=== PATIENT | male | born 1995 | race Caucasian/White ===

== ENCOUNTER 2023-01-10 15:09 | Outpatient (REF) | payer OTHER, SELFPAY ==
--- NOTE | ~2023-01-10 | XR_ITS ---
EXAMINATION: XR CERVICAL SPINE CLINICAL INFORMATION: Cervicalgia. COMPARISON: None available. TECHNIQUE: 3 views of the cervical spine were obtained. FINDINGS: No abnormal prevertebral soft tissue swelling is seen. The bony texture and alignment appears satisfactory. No acute fracture is identified. There is some mild spurring seen at the C4-C5 and C5-C6 levels. No significant disc space narrowing is identified. No destructive bony lesions. There is some spurring also noted about the atlantoaxial joint. XR/XR cervical spine 2V IMPRESSION: Mild degenerative change of the cervical spine.
== END 2023-01-10 15:10 | disposition home or self-care (01) ==
LOC: HO.XRAY 15:09
PROVIDERS: PCP Nurse Practitioner Family; Visit Provider Nurse Practitioner Family
DX: M54.2 Cervicalgia (principal)
CPT/HCPCS: 72040

== ENCOUNTER 2025-03-21 09:22 | Outpatient (AMB) | payer OTHER, SELFPAY ==
--- NOTE | 2025-03-21 09:24 | A.OFFPC_ITS ---
Vital Signs 03/21/25 09:31 Height 5 ft 9 in Weight 201 lb 6 oz BMI 29.7 BP 116/74 Blood Pressure Location Rt brachial Position Sitting Pulse 85 Pulse Source Pulse Oximeter Temp 98.6 F Temp Source Temporal Artery Scan Pulse Oximetry (%) 98 Oxygen Delivery Method Room Air Intake Visit Reasons: EST CARE Intake Note: Jarod presents in the office today to establish care. Allergies kiwi Allergy (Severe, Verified 03/21/25 10:19) swelling and itching shellfish derived (SHELLFISH DERIVED) Allergy (Severe, Verified 03/21/25 10:19) ANAPHYLAXIS iodine (IODINE) Allergy (Intermediate, Verified 03/21/25 09:28) HIVES dog dander Allergy (Verified 03/21/25 09:28) Shortness of Breath Enviornmental Allergy (Intermediate, Uncoded 03/21/25 09:28) Sneezing Tobacco use date assessed: 03/21/25 Dental Screening Dental Screen Date: 03/21/25 Did you have a dental visit in the last 12 months?: Yes Did you have a dental problem in the last 6 months where you did not have access to dental care?: No Was dental information given to patient?: Patient has dentist HPI HPI Comments History of Present Illness Details 29-year-old male with a past medical his tory of environmental allergies, asthma and food allergies presents to establish care. It has been several years since he had a primary care provider. Asthma-triggered by illness sometimes and exposure to dogs. When his sister's dog is around he starts to sneeze. He was around the dog for 2 days in a row, and he could not stop coughing for a day. It kept him awake at night. His rescue inhaler was ineffective. No wheezing, shortness of breath or chest pain. Coughing was worse when he laughed. He gets no symptoms with exercise. He is a nonsmoker. No steroid courses or ER visits or hospitalizations for asthma. He gets mild seasonal allergy symptoms like watery eyes. He does not need to take medicine for this. He saw Dr. Mabry for evaluation of allergies in the past, and he started allergy shots, but he felt it was too much to go twice a week, and he discontinued immunotherapy. He is allergic to shellfish (crustaceans). He can eat mollusks including scallops, oysters and clams. Ingestion of crustaceans causes throat closing, itching and lip swelling. He can eat finned fish. Ingestion of argueta we causes for lip swelling and skin itching. He has an EpiPen, but he is not sure if this is up-to-date. Patient reports he was hospitalized in 2018 for swelling, shortness of breath and hives all over his body for 3 days. 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 He has a right ACL tear. He sees Orthopedics, and eventually he will need surgery, but he defers it for now. After swimming and diving into a pool last week his neck has been stiff. This has happened before. It does not radiate down his arms, and there was no numbness or tingling or weakness of the arms. He has been massaging his neck, and it is better. The pain is mild. ROS: Constitutional: No unexplained weight loss, fever, chills, fatigue or night sweats. Eyes: No vision changes, blurry vision, double vision, eye pain, eye redness, eye discharge. ENT: No hearing loss, sneezing, congestion, runny nose or sore throat. Respiratory: No current cough, wheezing, shortness of breath or sputum production. Cardiovascular: No chest pain Gastrointestinal: No anorexia, nausea, vomiting or diarrhea. No abdominal pain Neurologic: No headache, dizziness, syncope, unilateral weakness, ataxia, numbness or tingling in the extremities. Musculoskeletal: See HPI. Skin: No rash Physical exam: Constitutional: Alert, in no distress. Eyes: Pupils are equal, round and reactive to light. Extraocular muscles intact. Ear, Nose and Throat: Canals clear. TMs normal. Normal nasal mucosa. No nasal discharge. No oral lesions. Mild cobblestoning in the pharynx. Neck: Supple, Full range of motion. No lymphadenopathy Respiratory: Clear to auscultation. Cardiovascular: S1 S2 regular. No murmurs. Neurologic: No focal neurological deficits. Musculoskeletal: Full range of motion of the cervical spine. No midline spinal tenderness. The right paraspinal muscles are tender and tight. Psychiatric: Normal mood and affect [facility] Medical History (Updated 03/21/25 @ 10:25 by HALIMA Erazo) Multiple food allergies Mild intermittent asthma Anaphylaxis due to shellfish Allergy to dogs Screening for cardiovascular condition Asthma Cervical spine pain Surgical History H/O anterior cruciate ligament surgery Family History (Updated 01/28/23 @ 11:02 by Shraddha Butler) Father No problems noted. Mother No problems noted. Sister Fibromyalgia Heart problem Brother No problems noted. Maternal Grandmother Stomach cancer Social History Housing: Apartment Patient Tobacco Use Status: Never used Tobacco e-Cigarette/Vaping Use: Never Used Second Hand Smoke Exposure: Yes service: No Current occupational status: employed Current occupation: [employer] Current occupational exposures/hazards: No Cognitive needs: No Hearing needs: No Vision needs: No Questionnaire PHQ-9 Over the last 2 weeks, how often have you been bothered by any of the following problems? 1. Little interest or pleasure in doing things: not at all 2. Feeling down, depressed, or hopeless: not at all 3. Trouble falling or staying asleep, or sleeping too much: not at all 4. Feeling tired or having little energy: not at all 5. Poor appetite or overeating: not at all 6. Feeling bad about yourself - or that you are a failure or have let yourself or your family down: not at all 7. Trouble concentrating on things, such as reading the newspaper or watching television: not at all 8. Moving or speaking so slowly that other people could have noticed. Or the opposite - being so fidgety or restless that you have been moving around a lot more than usual: not at all 9. Thoughts that you would be better off or of hurting yourself in some way: not at all Total score: 0 Depression Screening Interpretation: Negative Depression Screening Done: Yes 06480 - PHQ-9 Billing: Yes Source: Developed by Drs. Jefferson Arias, Leigh Ann Nair, Javad Ortiz and colleagues, with an educational fany from [employer]. Thrive Questionnaire Date Thrive assessed: 03/21/25 I am a: Patient What is your living situation today?: I have a steady place to live Within the past 12 months, did the food you bought not last and you didn't have the money to get more?: Never true Within the past 12 months, did you worry whether your food would run out before you got money to buy more?: Never true Do you have trouble paying for medicines?: No Do you have trouble getting transportation to medical appointments?: No Do you have trouble paying your heating and electricity bill?: No Do you have trouble taking care of your child, family member or friend?: No Do you have trouble with day-to-day activities such as bathing, preparing meals, shopping, managing finances, etc.?: No Are you currently unemployed and looking for a job?: No Are you interested in more education?: No Please select the resources that you would like help with: None Currently or been in a relationship where the following occur: No concerns reported THRIVE Score: 0 AUDIT C Alcohol Use Questionnaire (AUDIT-C) 1. How often do you have a drink containing alcohol?: 2-3 times a week 2. How many drinks containing alcohol do you have on a typical day when you are drinking?: 1 or 2 3. How often do you have six or more drinks on one occasion?: Never Total Score: 3 ALEXSANDRA-7 AMB Questionnaire AELXSANDRA-7 Date ALEXSANDRA - 7 assessed: 03/21/25 Feeling nervous, anxious, or on edge: 0 = Not at all Not being able to stop or control worryin = Not at all Worrying too much about different things: 0 = Not at all Trouble relaxin = Several days Being so restless that it is hard to sit still: 0 = Not at all Becoming easily annoyed or irritable: 0 = Not at all Feeling afraid as if something awful might happen: 0 = Not at all Total ALEXSANDRA-7 score (0-4 normal; 5-9 mild; 10-14 moderate; 15-21 severe): 1 Source: Developed by Drs. Jefferson Arias, Leigh Ann Nair, Javad Ortiz and colleagues, with an educational fany from [employer]. ALEXSANDRA-7 Assessment Billing ALEXSANDRA-7 Assessment Tool: ALEXSANDRA-7 Assessment 69620 Physical exam (Primary Care) Vital Signs: Last Vital Signs Temp 98.6 F 03/21/25 09:31 Pulse 85 03/21/25 09:31 BP 116/74 03/21/25 09:31 Pulse Ox 98 03/21/25 09:31 Oxygen Delivery Method Room Air 03/21/25 09:31 BMI result Body Mass Index 29.7 Tobacco/Smoking Status: Tobacco use Status Tobacco use date assessed 03/21/25 03/21/25 09:36 Patient Tobacco Use Status Never used Tobacco 03/21/25 09:36 e-Cigarette/Vaping Use Never Used 03/21/25 09:36 PHQ-9: PHQ-9 Score PHQ-9: Total score 0 03/21/25 09:59 Depression Screening Interpretation: Negative Thrive Assessment: Date of Thrive Assessment Date Thrive assessed 03/21/25 03/21/25 09:36 Currently or been in a relationship where the following occur: No concerns reported Coding Level of Care Code New Pt Level 4 (91354) Complex EM visit Add On G2211 Diagnoses Allergy to dogs J30.81 Anaphylactic shock due to shellfish, initial encounter T78.02XA Encounter type: initial encounter Mild intermittent asthma without complication J45.20 Asthma complication type: uncomplicated Cervical spine pain M54.2 Additional Codes ALEXSANDRA-7 Assessment Billing - ALEXSANDRA-7 Assessment Tool: ALEXSANDRA-7 Assessment 49949 ([id number]) PHQ-9 - 26585 - PHQ-9 Billing: Yes ([id number]) Assessment & Plan Assessment & Plan (1) Allergy to dogs: Code(s): J30.81 - Allergic rhinitis due to animal (cat) (dog) hair and dander Category: Medical Plan: The patient declines referral for immunotherapy and allergy evaluation at this time. He does not have a dog, and I encouraged him not to get this as a pet. If he is going to be around a dog he should take Zyrtec 10 mg at least 30 minut es in advance and administer albuterol 2 puffs 15-30 minutes and advance and carry the medication with him. Continue every 4 hours as needed for cough, wheezing and shortness of breath. He should also carry his EpiPen with him at all times. If this regimen is ineffective we will consider daily trial of montelukast. I will also prescribe him a nebulizer and albuterol vials. (2) Anaphylaxis due to shellfish: Code(s): T78.02XA - Anaphylactic reaction due to shellfish (crustaceans), initial encounter Category: Medical Qualifiers: Encounter type: initial encounter Qualified Code(s): T78.02XA - Anaphylactic reaction due to shellfish (crustaceans), initial encounter Plan: Declines referral to Allergy and immunology. Continue strict avoidance of shellfish (crustaceans). We reviewed the risk of cross contamination especially when dining out. Administer epinephrine for an allergic reaction if 2 or more body systems are involved (like coughing and itching or nausea and hives) or if there is a severe symptom such as facial swelling or throat closing. Always call 911 after administration of EpiPen. If there are mild symptoms such as a few hives or itching he can administer Zyrtec 10 mg and monitor for progression of symptoms. (3) Mild intermittent asthma: Code(s): J45.20 - Mild intermittent asthma, uncomplicated Category: Medical Qualifiers: Asthma complication type: uncomplicated Qualified Code(s): J45.20 - Mild intermittent asthma, uncomplicated Plan: Albuterol 2 puffs every 4 hours as needed for coughing, wheezing and shortness of breath. Monitor symptom burden and albuterol requirement. Recommended seasonal influenza vaccine and pneumonia vaccine. (4) Cervical spine pain: Code(s): M54.2 - Cervicalgia Category: Medical Plan: Recommended gentle stretching and application of a heating pad. Discussed if symptoms are recurrent or do not resolve we will obtain x-ray and physical therapy referral. Plan Follow up in 2-3 months for a physical exam. He will have lab work done. Declines screening for STIs. Orders: Orders TSH reflex Free T4 Today J45.909 - Unspecified asthma, uncomplicated, Z13.6 - Encounter for screening for cardiovascular disorders Complete Blood Count no Diff Today J45.909 - Unspecified asthma, uncomplicated, Z13.6 - Encounter for screening for cardiovascular disorders Lipid Panel Today J45.909 - Unspecified asthma, uncomplicated, Z13.6 - Encounter for screening for cardiovascular disorders Comprehensive Met. Panel Today J45.909 - Unspecified asthma, uncomplicated, Z13.6 - Encounter for screening for cardiovascular disorders Medications: New epinephrine (EpiPen) for 2 doses 0.3 mg (0.3 mL) IM Q10M PRN 1 ea 2RF anaphylaxis albuterol sulfate 2.5 mg (3 mL) inhalation Q4H PRN 75 mL 0RF shortness of breath or wheezing or cough cetirizine (Zyrtec) Administer at least 30 minutes before exposure to dogs. 10 mg PO DAILY PRN 30 tabs 5RF allergy symptoms Refilled albuterol sulfate 90 mcg/actuation 2 puffs inhalation Q4-6H PRN 8.5 grams 3RF shortness of breath or wheezing
[2025-03-21 09:31] VITALS: BP 116/74; PULSE 85; TEMP 37; O2SAT 98; BMI 29.7
--- OUTSIDE RECORDS SUMMARY | 2025-03-21 09:46 | XMS_ITS | Clinical Summary ---
Author Organization [employer] Address [address] [facility] [address] [place] [address] Care Team Providers Care Automation Clerk Name Role Phone Unavailable Primary Care Provider Unavailabl e Social History Tobacco Use Types Packs/Day Years Used Date Smoking Tobacco: Never Assessed Sex and Gender Information Value Date Recorded Sex Assigned at Male 07/08/2022 10:37 AM EDT Legal Sex Male 10:37 AM EDT Gender Identity Not on file Sexual Orientation Not on file Plan of Treatment Health Maintenance Due Date Last Done Comments Depression Screening 1995 Disability Screening 1995 Alcohol/Substance Use Screening 2007 Tobacco Screening 2007 Family Planning (PISQ) 2010 HPV Vaccines (1 - Male 3-dos e series) 2010 DTaP/Tdap/Td Vaccines (1 - Tdap) 2014 Hepatitis B Vaccines (1 of 3 - 19+ 3-dose series) 2014 COVID-19 Vaccine (1 - 2023-2 5 season) 2024 Influenza Vaccine (#1) 2025 Zoster Vaccines (1 of 2) 2045 RSV Patients and Pa tients Aged 60 years or older (1 - 1-dose 75+ series) 2070 HIB Vaccines Aged Out No longer eligi ble based on patient's age to complete this topic Hepatitis A Vaccines Aged Out No long er eligible based on patient's age to complete this topic IPV Vaccines Aged Out No longer eligi ble based on patient's age to complete this topic Meningococcal B Vaccine Aged Out No l onger eligible based on patient's age to complete this topic Meningococcal Vaccine Aged Out No cathy shruthi eligible based on patient's age to complete this topic Pneumococcal Vaccine: Pediat rics (0 to 5 Years) and At-Risk Patients (6 to 49) Years Aged Out No longer eligible b ased on patient's age to complete this topic RSV under 20 months Aged Out No longe r eligible based on patient's age to complete this topic Rotavirus Vaccines Aged Out No longer eligible based on patient's age to complete this topic
--- OUTSIDE RECORDS SUMMARY | 2025-03-21 09:46 | XMS_ITS | Encounter Summary ---
Author Organization [facility] Address [address] [place] [address] Phone Care Team Providers Care Bar Finish Operator Name Role Phone Yordy Gandara MD Primary Care Provider [phone] Encounter Details Date Type Department Care Team (Late st Contact Info) Description 11/26/2013 Documentation EM Family Medicine [address] [place] [address] Family Medicine, Physician [address] [place], [place] [address] Social History Tobacco Use Types Packs/Day Years Used Date Smoking Tobacco: Never Assessed Sex and Gender Information Value Date Recorded Sex Assigned at Not on file Legal Sex Male 4:56 PM EDT Gender Identity Not on file Sexual Orientation Not on file documented as of this encounter Plan of Treatment Not on file documented as of this encounter Visit Diagnoses Not on filedocumented in this encounter Care Teams Bar Finish Operator Relationship Specialty Start Date End Date oYrdy Gandara MD [address] [place] [address] [place] [address] PCP - General 04/18/17 10/24/22 documented as of this encounter
== END 2025-03-21 10:16 | disposition home or self-care (01) ==
LOC: HO.HMCFM 09:23
PROVIDERS: PCP Physician Assistant Medical; Visit Provider Physician Assistant Medical
DX: J30.81 Allergic rhinitis due to animal (cat) (dog) hair and dander (principal); T78.02XA Anaphylactic reaction due to shellfish (crustaceans), initial encounter; J45.20 Mild intermittent asthma, uncomplicated; M54.2 Cervicalgia

== ENCOUNTER → 2025-03-21 09:22 | Outpatient (BNVA) | payer OTHER, SELFPAY | PROVIDERS: PCP Physician Assistant Medical; Visit Provider Physician Assistant Medical | DX: J30.81 Allergic rhinitis due to animal (cat) (dog) hair and dander (principal); T78.02XA Anaphylactic reaction due to shellfish (crustaceans), initial encounter; J45.20 Mild intermittent asthma, uncomplicated; M54.2 Cervicalgia; Z13.31 Encounter for screening for depression; Z13.30 Encounter for screening examination for mental health and behavioral disorders, unspecified | CPT/HCPCS: 96127 ==

== ENCOUNTER 2025-07-28 16:05 | Outpatient (AMB) | payer OTHER, SELFPAY ==
--- OUTSIDE RECORDS SUMMARY | 2025-07-23 23:59 | XMS_ITS | Continuity of Care Document ---
Author Organization [facility] Address [address] [place] [address]- Care Team Providers Care Cable Maintainer Name Role Phone Gisselle DE JESUS, Barby Primary Care Physici an Encounter [facility] Date(s): 03/25/25 - 07/23/25 [facility] Adult [address] [place] [address]- Encounter Diagnosis Well adult exam(Discharge Diagnosis) - 06/22/25 Asthma(Discharge Diagnosis) - 06/23/25 Lipoma(Discharge Diagnosis) - 06/23/25 Cardiac murmur(Discharge Diagnosis) - 06/23/25 Esophageal reflux(Discharge Diagnosis) - 06/23/25 Attending Physician: Linda DE JESUS, Marshall Couch Encounter Type: Pre Office Visit Allergies, Adverse Reactions, Alerts Substance Criticality Severity Reaction Reaction Severity Status shellfish Active Seafood Active Medications Multivitamin 1 tablet, By Mouth, Daily, 0 Refills, Maintenance, 10/06/19 3:47:00 PM EST Start Date: 10/06/19 Status: Ordered Medication Dispense Status: Completed Total Allowed Fills: 1 Fills Dispensed: 0 Ventolin 90 mcg Inhaler 2, puffs, Inhalation, 4 times a day, Refills 0, Maintenance, 12/08/18 3:59:08 PM EDT Start Date: 12/08/18 Status: Ordered Medication Dispense Status: Completed Total Allowed Fills: 1 Fills Dispensed: 0 Vitamin C 500 mg oral tablet 1 tablet = 500 mg, By Mouth, Daily, # 30 tablet, 0 Refills, Maintenance, 10/06/19 3:48:00 PM EST, Tablet Start Date: 10/06/19 Status: Ordered Medication Dispense Status: Completed Quantity: 30.0 Unit: tablet Total Allowed Fills: 1 Fills Dispensed: 0 ZyrTEC 10 mg oral tablet 1 tablet = 10 mg, By Mouth, Daily, 0 Refills, Maintenance, 10/11/19 6:49:00 AM EST Start Date: 10/11/19 Status: Ordered Medication Dispense Status: Completed Total Allowed Fills: 1 Fills Dispensed: 0 Problem List Condition Confirmation Course Effective Dates Status Health St atus Informant Asthma Confirmed Active Food allergy Confirmed Active Esophageal reflux Confirmed Active Cardiac murmur Confirmed Active Lipoma Confirmed Active Ankle sprain Confirmed Active Tinea corporis Confirmed Active Diagnosis Diagnosis Type Effective Dates Health Status Clinical Service Informant Well adult exam Discharge Diagnosis 06/22/25 Asthma Discharge Diagnosis 06/23/25 Lipoma Discharge Diagnosis 06/23/25 Cardiac murmur Discharge Diagnosis 06/23/25 Esophageal reflux Discharge Diagnosis 06/23/25 Social History Social History Type Response Smoking Status Never (less than 100 in lifetime) entered on: 12/08/18 Sex Sex Representation Male (finding) Patient Care team information Care Team Personnel Name: Gisselle DE JESUS, Barby Position: [facility] Physician - Primary Care Member Role: PCP Address: [address] [place] [address] Telecom: Care Team Related Persons Name: JIMMY ZUNIGA Name: KAISER FISCHER Name: EMELY BRODY Insurance Providers Guarantor name: MITESH Health Plan Information #: 1 Payer: [place] [employer] Payer Identifier: MITESH Member Number: [id number] Group Number: [id number] Subscriber Identifier: [id number] Relationship to Subscriber: self Coverage Type: Managed Care (Private) Coverage Verification Date: NA Telecom: Address:
--- OUTSIDE RECORDS SUMMARY | 2025-07-23 23:59 | XMS_ITS | Continuity of Care Document ---
Author Organization [facility] Address [address] [place] [address]- Care Team Providers Care Sound Designer Name Role Phone Gisselle DE JESUS, Barby Primary Care Physici an Encounter [facility] Date(s): 06/23/25 - 07/23/25 [facility] Adult [address] [place] [address]- Attending Physician: Rhiannon Guillermo Admitting Physician: AdmtrRhiannon Referring Physician: Admtr, Ar8 Encounter Type: Triage Allergies, Adverse Reactions, Alerts Substance Criticality Severity [...] sprain Confirmed Active Tinea corporis Confirmed Active Social History Social History Type Response Smoking Status Never (less than 100 in lifetime) entered on: 12/08/18 Sex Sex Representation Male (finding) Patient Care team information Care Team Personnel Name: Barby Pitts MD Position: [facility] Physician - Primary Care Member Role: PCP Address: [address] [place] [id number] Telecom: Care Team Related Persons Name: JIMYM ZUNIGA Name: KAISER FISCHER Name: EMELY BRODY Insurance Providers Guarantor name: MITESH Health Plan Information #: 1 Payer: [place] [employer] Payer Identifier: MITESH Member Number: [id number] Group Number: [id number] Subscriber Identifier: MITESH Relationship to Subscriber: self Coverage Type: Managed Care (Private) Coverage Verification Date: MITESH Telecom: MITESH Address:
--- NOTE | 2025-07-28 16:08 | MHC.PC.OV ---
Vital Signs 07/28/25 16:11 Height 5 ft 9 in Weight 210 lb 6 oz BMI 31.1 BP 112/72 Blood Pressure Location Rt brachial Position Sitting Respiration 15 Pulse 83 Pulse Source Pulse Oximeter Temp 98.2 F Temp Source Temporal Artery Scan Pulse Oximetry (%) 96 Oxygen Delivery Method Room Air Intake Visit Reasons: cpe Intake Note: Jarod presents in the office today for his annual CPE. Allergies kiwi Allergy (Severe, Verified 07/28/25 16:10) swelling and itching shellfish derived (SHELLFISH DERIVED) Allergy (Severe, Verified 07/28/25 16:10) ANAPHYLAXIS iodine (IODINE) Allergy (Intermediate, Verified 07/28/25 16:10) HIVES dog dander Allergy (Verified 07/28/25 16:10) Shortness of Breath Enviornmental Allergy (Intermediate, Uncoded 07/28/25 16:10) Sneezing Medication List - Last Reconciled 07/29/25 by HALIMA Erazo albuterol sulfate 2.5 mg (3 mL) inhalation Q4H PRN albuterol sulfate 90 mcg/actuation 2 puffs inhalation Q4-6H PRN cetirizine (Zyrtec) 10 mg PO DAILY PRN epinephrine (EpiPen) 0.3 mg (0.3 mL) IM Q10M PRN nebulizers (Compact Compressor Nebulizer) As directed Tobacco use date assessed: 07/28/25 Dental Screening Dental Screen Date: 07/28/25 Did you have a dental visit in the last 12 months?: Yes Did you have a dental problem in the last 6 months where you did not have access to dental care?: No Was dental information given to patient?: Patient has dentist HPI HPI Comments History of Present Illness Details 30-year-old male with a past medical history of environmental allergies, asthma and food allergies presents for a physical exam. Asthma-triggered by illness sometimes and exposure to dogs. He is a nonsmoker. No steroid courses or ER visits or hospitalizations for asthma. He gets mild seasonal allergy symptoms like watery eyes. He does not need to take medicine for this. He saw Dr. Mabry for evaluation of allergies in the past, and he started allergy shots, but he felt it was too much to go twice a week, and he discontinued immunotherapy. He is allergic to shellfish (crustaceans) and kiwi. EpiPen is up-to-date. He has a right ACL tear. He sees orthopedics. He says that he is putting off the surgery for now. Patient says his father is currently being evaluated for possible colon cancer. He is going to message me if he has been diagnosed to discuss what age she should be screened. Discussed tetanus, influenza and pneumonia vaccines. He declined. Dental and eye exams are up to date. ROS: Constitutional: No unexplained weight loss, fever, chills, fatigue or night sweats. Eyes: No vision changes, blurry vision, double vision, eye pain, eye redness, eye discharge. ENT: No hearing loss, sneezing, congestion, runny nose or sore throat. Respiratory: No shortness of breath, cough or sputum production. Cardiovascular: No chest pain, chest pressure or chest discomfort. No palpitations or pedal edema. Gastrointestinal: No anorexia, nausea, vomiting or diarrhea. No abdominal pain or blood in stool. Genitourinary: No dysuria, hematuria, urinary frequency. Denies testicular lumps, masses, swelling, pain. He does home exams. Neurologic: No headache, dizziness, syncope, unilateral weakness, ataxia, numbness or tingling in the extremities. Musculoskeletal: see HPI Hematologic/Lymphatics: No bleeding or bruising. No painful lymph nodes. Skin: No rash Endocrine: No cold or heat intolerance. No polyuria or polydipsia. Psychiatric: No depression or anxiety. No SI/HI. Physical exam: Constitutional: Alert, in no distress. Eyes: Pupils are equal, round and reactive to light. Extraocular muscles intact. Ear, Nose and Throat: Canals clear. TMs normal. Normal nasal mucosa. No nasal discharge. No oral lesions. Neck: Supple, Full range of motion. No lymphadenopathy. No palpable thyroid masses. Respiratory: Clear to auscultation. Cardiovascular: S1 S2 regular. No murmurs. Gastrointestinal: Abdomen soft, non-tender, non-distended. Normal bowel sounds. No palpable masses. Genitourinary: No CVA tenderness. Neurologic: No focal neurological deficits. Symmetric patellar reflexes. Moves all extremities spontaneously. Skin: No rashes or lesions. Musculoskeletal: No gross deformities. Normal range of motion. Extremities: Warm and well perfused. No clubbing, cyanosis or edema. Psychiatric: Normal mood and affect [facility] Medical History (Updated 07/29/25 @ 13:36 by HALIMA Erazo) Routine physical examination Multiple food allergies Mild intermittent asthma Anaphylaxis due to shellfish Allergy to dogs Screening for cardiovascular condition Asthma Cervical spine pain Surgical History H/O anterior cruciate ligament surgery Family History Father No problems noted. Mother No problems noted. Sister Fibromyalgia Heart problem Brother No problems noted. Maternal Grandmother Stomach cancer Social History (Updated 07/28/25 @ 16:11 by Marivel Wing [facility]) Housing: Apartment Alcohol intake: current Patient Tobacco Use Status: Never used Tobacco e-Cigarette/Vaping Use: Never Used Second Hand Smoke Exposure: Yes service: No Current occupational status: employed Current occupation: [email or web address] Current occupational exposures/hazards: No Cognitive needs: No Hearing needs: No Vision needs: No Questionnaire PHQ-9 Over the last 2 weeks, how often have you been bothered by any of the following problems? 1. Little interest or pleasure in doing things: not at all 2. Feeling down, depressed, or hopeless: not at all 3. Trouble falling or staying asleep, or sleeping too much: not at all 4. Feeling tired or having little energy: not at all 5. Poor appetite or overeating: several days 6. Feeling bad about yourself - or that you are a failure or have let yourself or your family down: not at all 7. Trouble concentrating on things, such as reading the newspaper or watching television: not at all 8. Moving or speaking so slowly that other people could have noticed. Or the opposite - being so fidgety or restless that you have been moving around a lot more than usual: not at all 9. Thoughts that you would be better off or of hurting yourself in some way: not at all Total score: 1 Depression Screening Interpretation: Negative Depression Screening Done: Yes 77611 - PHQ-9 Billing: Yes Source: Developed by Drs. Jefferson Arias, Leigh Ann Nair, Javad Ortiz and colleagues, with an educational fany from [employer] Thrive Questionnaire Date Thrive assessed: 03/20/25 I am a: Patient What is your living situation today?: I have a steady place to live Within the past 12 months, did the food you bought not last and you didn't have the money to get more?: Never true Within the past 12 months, did you worry whether your food would run out before you got money to buy more?: Never true Do you have trouble paying for medicines?: No Do you have trouble getting transportation to medical appointments?: No Do you have trouble paying your heating and electricity bill?: No Do you have trouble taking care of your child, family member or friend?: No Do you have trouble with day-to-day activities such as bathing, preparing meals, shopping, managing finances, etc.?: No Are you currently unemployed and looking for a job?: No Are you interested in more education?: No Please select the resources that you would like help with: None Currently or been in a relationship where the following occur: No concerns reported THRIVE Score: 0 AUDIT C Alcohol Use Questionnaire (AUDIT-C) 1. How often do you have a drink containing alcohol?: Monthly or less 2. How many drinks containing alcohol do you have on a typical day when you are drinking?: 1 or 2 3. How often do you have six or more drinks on one occasion?: Never Total Score: 1 ALEXSANDRA-7 AMB Questionnaire ALEXSANDRA-7 Date ALEXSANDRA - 7 assessed: 07/28/25 Feeling nervous, anxious, or on edge: 0 = Not at all Not being able to stop or control worryin = Not at all Worrying too much about different things: 0 = Not at all Trouble relaxin = Not at all Being so restless that it is hard to sit still: 0 = Not at all Becoming easily annoyed or irritable: 0 = Not at all Feeling afraid as if something awful might happen: 0 = Not at all Total ALEXSANDRA-7 score (0-4 normal; 5-9 mild; 10-14 moderate; 15-21 severe): 0 Source: Developed by Drs. Jefferson Arias, Leigh Ann Nair, Javad Ortiz and colleagues, with an educational fany from [employer] ALEXSANDRA-7 Assessment Billing ALEXSANDRA-7 Assessment Tool: ALEXSANDRA-7 Assessment 06328 Physical exam (Primary Care) Vital Signs: Last Vital Signs Temp 98.2 F 07/28/25 16:11 Pulse 83 07/28/25 16:11 Resp 15 07/28/25 16:11 BP 112/72 07/28/25 16:11 Pulse Ox 96 07/28/25 16:11 Oxygen Delivery Method Room Air 07/28/25 16:11 BMI result Body Mass Index 31.1 Tobacco/Smoking Status: Tobacco use Status Tobacco use date assessed 07/28/25 07/28/25 16:16 Patient Tobacco Use Status Never used Tobacco 07/28/25 16:16 e-Cigarette/Vaping Use Never Used 07/28/25 16:16 PHQ-9: PHQ-9 Score PHQ-9: Total score 1 07/28/25 16:26 Depression Screening Interpretation: Negative Thrive Assessment: Date of Thrive Assessment Date Thrive assessed 03/20/25 07/28/25 16:16 Currently or been in a relationship where the following occur: No concerns reported Coding Level of Care Code Est Pt Prev Care 18-39y(41106) Diagnoses Routine physical examination Z00.00 Additional Codes ALEXSANDRA-7 Assessment Billing - ALEXSANDRA-7 Assessment Tool: ALEXSANDRA-7 Assessment 26155 ([id number]) PHQ-9 - 22944 - PHQ-9 Billing: Yes ([id number]) Assessment & Plan Assessment & Plan (1) Routine physical examination: Code(s): Z00.00 - Encounter for general adult medical examination without abnormal findings Category: Medical Plan Patient is seen today for a routine physical. As part of this visit we reviewed the following issues, which are considered and essential part of preventative health in this age group: - Testicular cancer screening, which includes self exam teaching - Screening for colon cancer - Blood pressure screening - Cholesterol screening - Nutritional and exercise counseling - Counseling of injury prevention including fire prevention, smoke alarms and seat belt usage - Screening for depression - Prevention of and/or testing for infectious diseases - declines screening - Education about skin cancer - Recommendations about immunizations - Recommendation of an eye exam - Screening for substance abuse Schedule physical exam in 1 year. He will have fasting lab work completed.
[2025-07-28 16:11] VITALS: BP 112/72; PULSE 83; RESP 15; TEMP 36.8; O2SAT 96; BMI 31.1
--- OUTSIDE RECORDS SUMMARY | 2025-07-28 20:55 | XMS_ITS | Encounter Summary ---
Author Organization [facility] Address [address] [place] [address] Phone Care Team Providers Care Organ Installer Name Role Phone Yordy Gandara MD Primary Care Provider [phone] Encounter Details Date Type Department Care Team (Late st Contact Info) Description 12/30/2012 Documentation EM Family Medicine [address] [place] [address] Family Medicine, Physician [address] [place], [place] [id number] Social History Tobacco Use Types Packs/Day Years [...] on filedocumented in this encounter Care Teams Organ Installer Relationship Specialty Start Date End Date Yordy Gandara MD [address] [place] [address] [place] [address] PCP - General 04/18/17 10/24/22 documented as of this encounter
--- OUTSIDE RECORDS SUMMARY | 2025-07-28 20:55 | XMS_ITS | Clinical Summary ---
Author Organization [facility] Address [address] [place] [address] Phone Care Team Providers Care Signs And Displays Salesperson Name Role Phone Unavailable Primary Care Provider Unavailabl e Immunizations Immunization Administration Dates Next Due DTP 01/20/1996,1995,1995 DTaP 5 05/31/1999,11/23/1996 H1N1 12/19/2009 HPV, Quadrivalent 04/30/2013,12/29/2012,10/30/19 13 Hep A, Adult 11/28/2014 Hep A, ped/adol 11/28/2014,11/25/2013 Hep B, ped/adol 01/20/1996,1995,1995 Hib (PRP-T) 11/23/1996,199 6,1995,08/08 IPV 05/31/1999,199 6,1995,08/08 Influenza Split 10/30/2012,05/31/2010 Influenza, injectable, quadr ivalent, preservative free 11/25/2013 Influenza, injectable, trivalent 05/30/2009,05/09,09/29/2006 MMR 11/23/1996,06/07/1996 Meningococcal Conj (Menactra) MCV4P 11/28/2014,0 09/29/2006 Td (adult) (MBL), 2 Lf tetan us toxoid, PF, adsorbed 07/31/2005 Tdap 05/25/2008 Varicella 05/25/2008,07/31/2005 Family History Relation Name Status Comments Brother Alive Brother: Alive and well Father Alive Father: Alive a nd well Maternal Grandfather Materna l grandfather: Diabetes mellitus Maternal Grandmother Materna l grandmother: Diabetes mellitus Mother Alive Mother: Migrain es / asthma Other Family history of *Heart Disease, Family history of Obesity, Family history of Strabismus, Family history of Elevated cholesterol, Family history of ADD/ADHD, No family history of *Dental caries, Family history of *Thrombophilia, Family history of Sudden /[place] under 55, Family history of *CVA/Stroke Paternal Grandmother Gurmeet leiva grandmother: Deafness Sister Alive Sister: Fibromy algia / asthma Social History Tobacco Use Types Packs/Day Years Used Date Smoking Tobacco: Never Comments:Never smoker Sex and Gender Information Value Date Recorded Sex Assigned at Not on file Legal Sex Male 4:56 PM EDT Gender Identity Not on file Sexual Orientation Not on file Last Filed Vital Signs Vital Sign Reading Time Taken Comments Blood Pressure 120/81 11/28/2014 12:00 AM EDT Pulse 86 11/28/2014 12:00 AM EDT Temperature 36.2 C (97.2 F) 11/14/2014 12:00 AM EDT Respiratory Rate - - Oxygen Saturation - - Inhaled Oxygen Concentration - - Weight 79.9 kg (176 lb 3.2 oz) 11/28/2014 12:00 AM EDT Height 174 cm (5' 8.5 ) 11/28/2014 12:00 AM EDT Body Mass Index 26.4 11/28/2014 12:00 AM EDT Plan of Treatment Health Maintenance Due Date Last Done Comments DTaP,Tdap,and Td Vaccines (7 - Td or Tdap) 05/25/2018 05/25/2008, 07/31/2005, 05/31/1999, Additional history exists Influenza Vaccines (#1) 2025 11/26/19 14, 10/30/2012, 05/31/2010, Additional history exists COVID-19 Vaccine ( season) 2025 Hepatitis B Vaccines Completed 01/20/1996, 1995, 1995 HIB Vaccines Completed 11/23/1996, 01/06, 1995, Additional history exists MMR Vaccines Completed 11/23/1996, 06/07/1996 IPV Vaccines Completed 05/31/1999, 01/06, 1995, Additional history exists Varicella Vaccines Completed 05/25/2008, 07/31/2005 HPV Vaccines Completed 04/30/2013, 12/08, 10/30/2012 Hepatitis A Vaccines Completed 11/28/2014, 11/28/2014, 11/25/2013 Meningococcal Vaccine Aged Out 11/28/2014, 007 No longer eligible based on patient's age to complete this topic Men B Vaccine Aged Out No longer elig ible based on patient's age to complete this topic Pneumococcal Vaccine Aged Out No long er eligible based on patient's age to complete this topic
--- OUTSIDE RECORDS SUMMARY | 2025-07-28 20:55 | XMS_ITS | Encounter Summary ---
Author Organization [facility] Address [address] [place] [address] Phone Care Team Providers Care Certified Nursing Attendant Name Role Phone Yordy Gandara MD Primary Care Provider [phone] Encounter Details Date Type Department Care Team (Late st Contact Info) Description 02/16/2015 Documentation EM Family Medicine [address] [place] [address] Family Medicine, Physician [address] [place], [place] [address] Social History Tobacco Use Types Packs/Day Years [...] on filedocumented in this encounter Care Teams Certified Nursing Attendant Relationship Specialty Start Date End Date Yordy Gandara MD [address] [place] [address] [place] [address] PCP - General 04/18/17 10/24/22 documented as of this encounter
--- OUTSIDE RECORDS SUMMARY | 2025-07-28 20:55 | XMS_ITS | Encounter Summary ---
Author Organization [facility] Address [address] [place] [address] Phone Care Team Providers Care Metal Model Maker Name Role Phone Yordy Gandara MD Primary Care Provider [phone] Encounter Details Date Type Department Care Team (Late st Contact Info) Description 11/26/2013 Documentation EM Family Medicine [address] [place] [address] Family Medicine, Physician [address] [place], [place] [address] Social History Tobacco Use Types Packs/Day Years [...] on filedocumented in this encounter Care Teams Metal Model Maker Relationship Specialty Start Date End Date Yordy Gandara MD [address] [place] [address] [place] [address] PCP - General 04/18/17 10/24/22 documented as of this encounter
--- OUTSIDE RECORDS SUMMARY | 2025-07-28 20:55 | XMS_ITS | Encounter Summary ---
Author Organization [employer] Address [address] [facility] 7 [place] [address] Care Team Providers Care Film Splicer Name Role Phone Unavailable Primary Care Provider Unavailabl e Encounter Details Date Type Department Care Team (Latest Contact Info) Description 06/02/2020 Abstract [facility] CONVERSIONS Dental, Provider, DDS Social History Tobacco Use Types Packs/Day Years [...]
--- OUTSIDE RECORDS SUMMARY | 2025-07-28 20:55 | XMS_ITS | Encounter Summary ---
Author Organization [facility] Address [address] [place] [address] Phone Care Team Providers Care Flight Information Expediter Name Role Phone Yordy Gandara MD Primary Care Provider [phone] Encounter Details Date Type Department Care Team (Late st Contact Info) Description 03/09/2012 Documentation EM Family Medicine [address] [place] [address] Family Medicine, Physician [address] [place], [place] [address] Social History Tobacco Use Types Packs/Day Years [...] on filedocumented in this encounter Care Teams Flight Information Expediter Relationship Specialty Start Date End Date Yordy Gandara MD [address] [place] [address] [place] [address] PCP - General 04/18/17 10/24/22 documented as of this encounter
--- OUTSIDE RECORDS SUMMARY | 2025-07-28 20:55 | XMS_ITS | Encounter Summary ---
Author Organization [facility] Address [address] [place] [address] Phone Care Team Providers Care Director Student Union Name Role Phone Yordy Gandara MD Primary Care Provider [phone] Encounter Details Date Type Department Care Team (Late st Contact Info) Description 05/03/2013 Documentation EM Family Medicine [address] [place] [address] Family Medicine, Physician [address] [place], [place] [address] Social History Tobacco Use Types Packs/Day Years [...] on filedocumented in this encounter Care Teams Director Student Union Relationship Specialty Start Date End Date Yordy Gandara MD [address] [place] [address] [place] [address] PCP - General 04/18/17 10/24/22 documented as of this encounter
--- OUTSIDE RECORDS SUMMARY | 2025-07-28 20:55 | XMS_ITS | Encounter Summary ---
Author Organization [facility] Address [address] [place] [address] Phone Care Team Providers Care Er Registrar Name Role Phone Yordy Gandara MD Primary Care Provider [phone] Encounter Details Date Type Department Care Team (Late st Contact Info) Description 11/29/2014 Documentation [facility] Family Medicine [address] [place] [address] Family Medicine, Physician [address] [place], [place] [phone] Social History Tobacco Use Types Packs/Day Years [...] on filedocumented in this encounter Care Teams Er Registrar Relationship Specialty Start Date End Date Yordy Gandara MD [address] [place] [address] [place] [address] PCP - General 04/18/17 10/24/22 documented as of this encounter
--- OUTSIDE RECORDS SUMMARY | 2025-07-28 20:55 | XMS_ITS | Encounter Summary ---
Author Organization [facility] Address [address] [place] [address] Phone Care Team Providers Care Couturiere Name Role Phone Yordy Gandara MD Primary Care Provider [phone] Encounter Details Date Type Department Care Team (Late st Contact Info) Description 11/02/2012 Documentation EM Family Medicine [address] [place] [address] Family Medicine, Physician [address] [place], [place] [address] Social History Tobacco Use Types Packs/Day Years [...] on filedocumented in this encounter Care Teams Couturiere Relationship Specialty Start Date End Date Yordy Gandara MD [address] [place] [address] [place] [address] PCP - General 04/18/17 10/24/22 documented as of this encounter
--- OUTSIDE RECORDS SUMMARY | 2025-07-28 20:55 | XMS_ITS | Encounter Summary ---
Author Organization [facility] Address [address] [place] [address] Phone Care Team Providers Care Solid Waste Engineer Name Role Phone Yordy Gandara MD Primary Care Provider [phone] Encounter Details Date Type Department Care Team (Late st Contact Info) Description 11/02/2012 Documentation EM Family Medicine [address] [place] [address] Family Medicine, Physician [address] [place], [place] [address] Social History Tobacco Use Types Packs/Day Years [...] on filedocumented in this encounter Care Teams Solid Waste Engineer Relationship Specialty Start Date End Date Yordy Gandara MD [address] [place] [address] [place] [address] PCP - General 04/18/17 10/24/22 documented as of this encounter
--- OUTSIDE RECORDS SUMMARY | 2025-07-28 20:55 | XMS_ITS | Encounter Summary ---
Author Organization [facility] Address [address] [place] [address] Phone Care Team Providers Care Head Of Housekeeping Name Role Phone Yordy Gandara MD Primary Care Provider [phone] Encounter Details Date Type Department Care Team (Late st Contact Info) Description 11/29/2014 Documentation [facility] [address] [place] [address] Family Medicine, Physician [address] [place], [place] [address] Social History Tobacco Use Types Packs/Day Years [...] on filedocumented in this encounter Care Teams Head Of Housekeeping Relationship Specialty Start Date End Date Yordy Gandara MD [address] [place] [address] [place] [address] PCP - General 04/18/17 10/24/22 documented as of this encounter
--- OUTSIDE RECORDS SUMMARY | 2025-07-28 20:55 | XMS_ITS | Encounter Summary ---
Author Organization [facility] Address [address] [place] [address] Phone Care Team Providers Care On Site Coordinator Name Role Phone Yordy Gandara MD Primary Care Provider [phone] Encounter Details Date Type Department Care Team (Late st Contact Info) Description 11/02/2012 Documentation EM Family Medicine [address] [place] [address] Family Medicine, Physician [address] [place], [place] [address] Social History Tobacco Use Types Packs/Day Years [...] on filedocumented in this encounter Care Teams On Site Coordinator Relationship Specialty Start Date End Date Yordy Gandara MD [address] [place] [address] [place] [address] PCP - General 04/18/17 10/24/22 documented as of this encounter
--- OUTSIDE RECORDS SUMMARY | 2025-07-28 20:55 | XMS_ITS | Encounter Summary ---
Author Organization [facility] Address [address] [place] [address] Phone Care Team Providers Care Cooling Tower Operator Name Role Phone Yordy Gandara MD Primary Care Provider [phone] Encounter Details Date Type Department Care Team (Late st Contact Info) Description 11/26/2013 Documentation EM Family Medicine [address] [place] [address] Family Medicine, Physician [address] [place], [place] [address] Social History Tobacco Use Types Packs/Day Years [...] on filedocumented in this encounter Care Teams Cooling Tower Operator Relationship Specialty Start Date End Date Yordy Gandara MD [address] [place] [address] [place] [address] PCP - General 04/18/17 10/24/22 documented as of this encounter
--- OUTSIDE RECORDS SUMMARY | 2025-07-28 20:55 | XMS_ITS | Encounter Summary ---
Author Organization [facility] Address [address] [place] [address] Phone Care Team Providers Care Roller Mill Tender Name Role Phone Yordy Gandara MD Primary Care Provider [phone] Encounter Details Date Type Department Care Team (Late st Contact Info) Description 11/26/2013 Documentation EM Family [facility] [address] [place] [address] Family Medicine, Physician [address] [place], [place] [id number] Social History Tobacco Use Types Packs/Day Years [...] on filedocumented in this encounter Care Teams Roller Mill Tender Relationship Specialty Start Date End Date Yordy Gandara MD [address] [place] [address] [place] [address] PCP - General 04/18/17 10/24/22 documented as of this encounter
--- OUTSIDE RECORDS SUMMARY | 2025-07-28 20:55 | XMS_ITS | Encounter Summary ---
Author Organization [facility] Address [address] [place] [address] Phone Care Team Providers Care Application Architect Manager Name Role Phone Yordy Gandara MD Primary Care Provider [phone] Encounter Details Date Type Department Care Team (Late st Contact Info) Description 05/03/2013 Documentation EM Family Medicine [address] [place] [address] Family Medicine, Physician [address] [place], [place] [id number] Social History Tobacco Use Types Packs/Day Years [...] on filedocumented in this encounter Care Teams Application Architect Manager Relationship Specialty Start Date End Date Yordy Gandara MD [address] [place] [address] [place] [address] PCP - General 04/18/17 10/24/22 documented as of this encounter
--- OUTSIDE RECORDS SUMMARY | 2025-07-28 20:55 | XMS_ITS | Encounter Summary ---
Author Organization [facility] Address [address] [place] [id number] Phone Care Team Providers Care Makeup Editor Name Role Phone Yordy Gandara MD Primary Care Provider [phone] Encounter Details Date Type Department Care Team (Late st Contact Info) Description 04/24/2017 Conversion Encounter [facility] [place] [address] [place] [address] Social History Tobacco Use Types Packs/Day Years [...] on filedocumented in this encounter Care Teams Makeup Editor Relationship Specialty Start Date End Date Yordy Gandara MD [address] [place] [address] PCP - General 04/18/17 10/24/22 documented as of this encounter
--- OUTSIDE RECORDS SUMMARY | 2025-07-28 20:55 | XMS_ITS | Encounter Summary ---
Author Organization [facility] Address [address] [place] [address] Phone Care Team Providers Care Advertising Space Clerk Name Role Phone Yordy Gandara MD Primary Care Provider [phone] Encounter Details Date Type Department Care Team (Late st Contact Info) Description 12/08/2014 Documentation EM Family Medicine [address] [place] [address] Family Medicine, Physician [address] [place] [address] Social History Tobacco Use Types Packs/Day Years [...] on filedocumented in this encounter Care Teams Advertising Space Clerk Relationship Specialty Start Date End Date Yordy Gandara MD [address] [place] [address] [place] [address] PCP - General 04/18/17 10/24/22 documented as of this encounter
--- OUTSIDE RECORDS SUMMARY | 2025-07-28 20:55 | XMS_ITS | Clinical Summary ---
Author Organization [employer] Address [address] [facility] [address] [place] [address] Care Team Providers Care Dog Trainer Name Role Phone Unavailable Primary Care Provider [...] 3-dose series) 2014 COVID-19 Vaccine (1 - 2024-2 6 season) 2025 Influenza Vaccine (#1) 2025 Zoster Vaccines (1 [...]
== END 2025-07-28 16:40 | disposition home or self-care (01) ==
LOC: HO.HMCFM 16:06
PROVIDERS: PCP Physician Assistant Medical; Visit Provider Physician Assistant Medical
DX: Z00.00 Encounter for general adult medical examination without abnormal findings (principal)

== ENCOUNTER → 2025-07-28 16:05 | Outpatient (BNVA) | payer OTHER, SELFPAY | PROVIDERS: PCP Physician Assistant Medical; Visit Provider Physician Assistant Medical | DX: Z00.00 Encounter for general adult medical examination without abnormal findings (principal); J45.909 Unspecified asthma, uncomplicated; Z13.31 Encounter for screening for depression; Z13.39 Encounter for screening examination for other mental health and behavioral disorders | CPT/HCPCS: 96127 ==